=== PATIENT | female | born 2000 | race Hispanic/Latino ===

== ENCOUNTER 2025-08-25 17:31 | Emergency (ER) | payer SELFPAY ==
[~2025-08-25] VITALS: Ht 149.9 cm; Wt 51.3 kg
[2025-08-25] MEDS ORDERED: HYDR-3830 PO (19:03)
--- NOTE | 2025-08-25 19:04 | ERN ---
General Chief Complaint: Anxiety/Panic Attack Stated Complaint: ANXIETY Time Seen by MD: 17:47 Time Seen by Midlevel: 17:47 Source: patient History of Present Illness Initial Comments 25-year-old female with a past medical history of anxiety presents to the emergency department for evaluation of a panic attack. Patient states she was previously on "anxiety medication" but she stopped taking this medication three weeks ago. Patient is unable to name the medication stating that the bottle she receives through the mail only has the word "anxiety" written on it. Allergies: Coded Allergies: No Known Drug Allergies (Unverified Allergy, Unknown, 08/25/25) Past Medical History Past Medical History: No Pertinent History Past Surgical History: None Female( History) LMP: Aug 03, 2025 ROS Dictation CONSTITUTIONAL: Negative except for HPI HEAD/FACE: Negative except for HPI EENT: Negative except for HPI RESPIRATORY: Negative except for HPI GASTROINTESTINAL/ABDOMINAL: Negative except for HPI GENITOURINARY: Negative except for HPI MUSCULOSKELETAL: Negative except for HPI INTEGUMENTARY: Negative except for HPI NEUROLOGICAL/PSYCH: Negative except for HPI HEMATOLOGIC/LYMPHATIC: Negative except for HPI All Systems Negative, Except as noted above. 13 point review of systems assessed and all negative except for above. Physical Exam Physical Exam Dictation Vital Signs reviewed General Appearance: Alert, oriented x 3, no acute distress, well developed, nourished. Head and Face: non-traumatic. Eyes: PERRL, pink conjunctivas, eyelid no trauma, anterior chamber with arcus senilis. Ears: Pinnas intact and no signs of trauma or erythema ear canals clear and no discharge TM no erythema Nose: No discharge, no bleeding. Oropharynx: Mouth normal, tongue pink, pharynx clear,no erythema, tonsils no exudates, no abscesses noted, mucous membrane moist Neck: Supple, non-tender, no thyromegaly, no masses, no JVD, no bruits Breast:Deferred Chest:No tenderness, no crepitus, no paradoxical movement, no retractions Lungs:Clear, well-ventilated, symmetric, no rales, no wheezing, no rhonchi, no stridor, good breath sounds bilaterally Heart: Regular rate, regular rhythm, no murmur, no gallops Vascular: no peripheral edema, Abdomen: Soft, positive bowel sounds, nondistended, no guarding, nontender, no rebound, no masses no hepatomegaly, no splenomegaly, no Olmstead's sign, no hernias. Rectal: Deferred Genital: Deferred Neurological: Normal speech, motor function intact, sensory function intact Musculoskeletal: Neck nontender, full range of motion, back nontender, full range of motion, Extremities: nontender, full range of motion Skin: Color pink, dry, no turgor, no rash, no lacerations, no abrasions, no contusions. Lymphatic: Deferred MDM MDM: Differential diagnosis: Anxiety, panic attack, There are no social concerns with this patient. Prescription drug management Prescriptions will include: Hydroxyzine Medical management and examination interpretation discussions were had by me with other qualified healthcare professionals as indicated for the patient's care. ED Course Orders Procedure Category Date Status Time Hydroxyzine 25mg Tab PHA 08/25/25 Complete (Atarax 25mg Tab) 18:30 Hydroxyzine 25mg Tab PHA 08/25/25 Complete (Atarax 25mg Tab) 18:13 Current Medications Medications (Trade) Dose Ordered Sig/Reina Route PRN Reason Start Time Stop Time Status Last Admin Dose Admin Hydroxyzine HCl (ATArax 25MG TAB) 25 mg ONCE ONCE PO 08/25/25 18:30 08/25/25 18:31 DC 08/25/25 18:15 Hydroxyzine HCl (ATArax 25MG TAB) 25 mg STK-MED ONCE .ROUTE 08/25/25 18:13 08/25/25 18:13 DC Vital Signs Date Time Temp Pulse Resp B/P (MAP) Pulse Ox O2 Delivery O2 Flow Rate FiO2 08/25/25 17:35 97.5 96 19 122/80 96 Room Air 0 DX & DISP Disposition: Discharge Departure Impression: Primary Impression: Anxiety attack Condition: Stable Scripts Hydroxyzine HCl (Hydroxyzine HCl) 10 Mg Tablet 1 TAB PO BID for anxiety for 5 Days, #10 TAB 0 Refills Prov: LEE ANN MACKAY PAC 08/25/25 Additional Instructions: Your symptoms are consistent with a an anxiety attack. You will need to follow up with your primary care doctor for further evaluation. I have given you a short course of hydroxyzine which should help improve your symptoms. Referrals: SELF,REFERRAL (PCP) Time of Disposition: 18:59 I have reviewed the case, and I agree with, Diagnosis and Plan I performed the substantive portion of the visit. I have reviewed and personally made and approve the management plan that is documented in the note by myself or the EDILSON. I acknowledge for responsibility for the patient's management plan. LEE ANN MACKAY PAC Aug 25, 2025 19:04
[2025-08-25 19:33] VITALS: BP 117/66; PULSE 82; RESP 16; TEMP 97.5; O2SAT 100
== END 2025-08-25 19:35 | disposition home or self-care (01) ==
LOC: EDH 17:31
DX: F41.0 Panic disorder [episodic paroxysmal anxiety] (principal)
CPT/HCPCS: 99283